=== PATIENT | female | born 1975 | race Caucasian/White ===

== ENCOUNTER 2024-08-06 08:28 | Outpatient (REF) | payer BC, SELFPAY | END 2024-08-06 08:29 | disposition home or self-care (01) | LOC: HO.SH 08:28 | PROVIDERS: Visit Provider Family Medicine | DX: Z01.118 Encounter for examination of ears and hearing with other abnormal findings (principal); H93.293 Other abnormal auditory perceptions, bilateral | CPT/HCPCS: 92557; 92567; 92700 ==

== ENCOUNTER 2025-01-02 11:25 | Outpatient (AMB) | payer BC, SELFPAY ==
--- NOTE | 2025-01-02 11:34 | MHC.OFFVIS ---
Vital Signs 01/02/25 11:35 Height 5 ft 4 in Weight 145 lb BMI 24.9 BP 92/61 Blood Pressure Location Rt brachial Position Sitting Pulse 94 Pulse Source Pulse Oximeter Pulse Oximetry (%) 97 Oxygen Delivery Method Room Air Intake Visit Reasons: Cervicalgia/shoulder pain Digital Research Analyst Required: No Allergies amoxicillin [AMOXICILLIN] Allergy (Intermediate, Unverified 01/02/25 11:35) YEAST INFECTION doxycycline [DOXYCYCLINE] Adverse Reaction (Intermediate, Unverified 01/02/25 11:35) VOMITING sulfamethoxazole [From BACTRIM] Adverse Reaction (Intermediate, Unverified 01/02/25 11:35) YEAST INFECTION trimethoprim [From BACTRIM] Adverse Reaction (Intermediate, Unverified 01/02/25 11:35) YEAST INFECTION Medication List - Last Reconciled 01/02/25 by Angie Carrero, SOLE CEMENTER bupropion HCl XL 300 mg PO QAM cetirizine (Zyrtec) 10 mg PO DAILY PRN diclofenac sodium 1% 2 grams topical QID lamotrigine ER (Lamictal XR) 300 mg PO DAILY magnesium 250 mg PO DAILY nystatin 1 appl topical DAILY trazodone 50 mg PO DAILY HPI Comments Details: Antionette is very pleasant 49 years old female who presents in my office with complains on pain in the neck with radiation into the bilateral shoulders and upper back. She reports that her pain started long time ago. Because of her pain she can not sleep normally. She can not do activities of daily living,she can take care of herself she can function normally. Weather changes in movements aggravate her pain. Heat applications topical medications and oral medications make her pain better. The pain is most severe in the morning and less severe during the daytime. Her level of pain is 5/10 today. In terms of tissue damage he describes her pain as throbbing, shooting, sharp, cramping, tugging, dull, hurting, aching, spreading, tight sensation. She tried NSAIDs for her pain with minimal results. She tried physical therapy chiropractic manipulations massage therapy and acupuncture to treat her pain. She received only temporary pain relief from some of this procedures. I stands unit and it helps her temporarily as well. She had images of her neck and her cervical spine in [facility]. Those are not available for me. Trigger point injections with [facility] which were not helpful for her pain. Her past medical history significant for headaches mental illness in form of depression and anxiety, alcohol or drug problems, history of Crohn's disease and history of arthritis past surgical history: Sinus surgery and tubal ligation, she denies smoking cigarettes denies drinking alcohol at this time drinks 2 cups of coffee a day and denies recreational drugs. Review of Systems Const All systems reviewed & are unremarkable except as noted in HPI and below ENT Reports Normal hearing present Neuro Reports Normal hearing present, Denies Abnormal speech present, Denies confusion and Denies Sensory deficit (Neuro) Psych Denies confusion Physical Exam Vital Signs: Last Vital Signs Pulse 94 01/02/25 11:35 BP 92/61 01/02/25 11:35 Pulse Ox 97 01/02/25 11:35 Oxygen Delivery Method Room Air 01/02/25 11:35 BMI result Body Mass Index 24.9 Const General: no acute distress; No confusion Orientation/consciousness: patient oriented x3 and No confusion Eyes General: appearance normal, both eyes and all related structures Pupils: Equal, round and reactive pupils present EOM: EOMs intact bilaterally Neck Other: Flexing head forward aggravates her pain minimally and flexing backwards aggravate her pain the most. Lhermitte test is negative however axial compression aggravates pain in the neck. Spurling test is negative bilaterally. There is tenderness on palpation in paraspinal spinal region cervical spine. Most severe tenderness is observed that approximately C5-C6 intervals. Valsalva maneuver does not aggravate her pain. Chest Chest palpation & inspection: normal inspection of the chest Resp Effort & Inspection: normal respiratory effort, able to speak in complete sentences, normal respiratory pattern, no audible wheezes and no cough Cardio Jugular venous distension: no JVD GI Inspection: Yes normal to inspection Neuro General: patient oriented x3, gait normal and No confusion Cranial nerves: Yes CN's II-XII intact bilaterally, Yes Equal, round and reactive pupils present, Yes Normal hearing present and Yes Ability to bilaterally elevate shoulders present Speech: No Abnormal speech present Gait exam (Neuro): Normal gait present Motor exam (neuro): 5/5 motor strength present throughout Sensory Exam: No Sensory deficit (Neuro) Extrem General: No pedal edema Psych Speech and movement: Normal speech and movement present Affect: normal affect Attitude: cooperative Thought process: Normal thought process present Thought content: Normal thought content present Insight: Good insight present (Psych) Judgement: Good judgement present (Psych) Assessment & Plan Assessment & Plan (1) Spondylosis of cervical region without myelopathy or radiculopathy: Code(s): M47.812 - Spondylosis without myelopathy or radiculopathy, cervical region Category: Medical Plan The pain of this patient is most likely secondary to cervical bilateral facet arthropathy. I offered this patient to perform bilateral diagnostic C4, C5, C6 diagnostic medial branch block. Patient agreed to go for the procedure. With good results we can try sprint PNS to help this patient's pain. Meanwhile I would like to receive the results of the MRI from [facility]. The patient will sign medical information release note and we will send it to the facility which was performing MRI for this patient. Coding Level of Care Code New Pt Level 3 (13259) Diagnoses Spondylosis of cervical region without myelopathy or radiculopathy M47.812
[2025-01-02 11:35] VITALS: BP 92/61; PULSE 94; O2SAT 97; BMI 24.9
== END 2025-01-02 11:52 | disposition home or self-care (01) ==
LOC: HO.PMC 11:26
PROVIDERS: PCP Family Medicine; Referring Provider Family Medicine; Visit Provider Anesthesiology
DX: M47.812 Spondylosis without myelopathy or radiculopathy, cervical region (principal)
CPT/HCPCS: 99203

== ENCOUNTER → 2025-01-02 11:25 | Outpatient (BNVA) | payer BC, SELFPAY | PROVIDERS: PCP Family Medicine; Referring Provider Family Medicine; Visit Provider Anesthesiology ==

== ENCOUNTER 2025-05-21 06:09 | Outpatient (REF) | payer BC, SELFPAY ==
--- NOTE | ~2025-05-21 | FL_ITS ---
EXAMINATION: FL GUIDANCE ONLY HISTORY: M47.812 - Spondylosis without myelopathy or radiculopathy, cervical region COMPARISON: None available. TECHNIQUE: Fluoroscopy time: 0.6 minutes. Cumulative Dose: 1.61 mGy. DAP: 0.0146 mGym2 Images: 10. FINDINGS: Fluoroscopic spot films of the cervical spine demonstrate needles and contrast material in the neck at multiple levels bilaterally. FL/FL guidance in treatment room IMPRESSION: Fluoroscopy during procedure. Please see procedure report for additional information. Electronically signed by: Wes Stanton MD 05/21/2025 08:17 AM EDT
--- OUTSIDE RECORDS SUMMARY | 2025-05-21 06:12 | XMS_ITS ---
Author Name [facility] Organization Unknown History of Medication Use Medication Directions Dispensed Refills Start Date End Date Stat us senna-docusate (SENNA-S) 8.6-50 MG Take 2 tablets by mouth daily. 03/29/2023 3 active escitalopram (LEXAPRO) 5 MG tablet Take 5 mg by mouth daily. 03/15/2023 active ondansetron (ZOFRAN-ODT) 4 MG disintegrating tablet Take 1 tablet (4 mg total) by mouth 3 times daily (every 8 hours) as needed for nausea or vomiting. Place tablet on tongue to dissolve. 10/04/2022 active ustekinumab (STELARA) 90 MG/ML subcutaneous injection Inject 90mg (1 syringe) subcutaneously every 8 weeks. 04/05/2022 3 active buPROPion (WELLBUTRIN SR) 150 MG 12 hr tablet Take 150 mg by mouth daily. 09/23/2021 3 active lamoTRIgine (LaMICtal) 200 MG tablet Take 1 tablet (200 mg total) by mouth daily. 08/29/2021 active Cetirizine HCl (ZyrTEC) 10 MG Cap 1 tablet as needed active Allergies Allergen Reaction Severity Comment Documented Date Source Statu s SULFAMETHOXAZOLE- TRIMETHOPRIM GI INTOLERANCE/NA USEA/VOMITING C/o yeast 08/19/2017 [facility] active AMOXICILLIN OTHER (SEE COMMENTS) Yeast infection and rash,C/o yeast [facility] DOXYCYCLINE GI INTOLERANCE/NA USEA/VOMITING [facility] Problems Problem Status Onset Date Problem Type Date of Resoluti on Source Crohn's disease of large intestine without complication active 2021-10-02 [facility] Chronic idiopathic constipation active 2023-03-29 [facility] Immunizations Vaccine Date Source Lot Number Status Covid-19 MRNA Vaccine - Pfiz er 12+ (Purple Cap) 12/12/2020 [facility] [id number] completed Covid-19 MRNA Vaccine - Pfiz er 12+ (Purple Cap) 11/21/2020 [facility] [id number] completed Encounters Encounter Type Encounter Reason Primary Diagnosis Location Date Ambulatory Chronic idiopath ic constipation [facility] 03/29/2023 Ambulatory Crohn's disease of large intestine without complications [facility] 09/22/2022 Ambulatory Crohn's disease of large intestine without complications [facility] 04/01/2022 Ambulatory Crohn's disease of large intestine without complications [facility] 10/02/2021 Care Team Organization Name Specialty Phone Email Start Date End [facility]2022 [facility] 04/01/2022 [facility] 10/02/2021 03/23/20 [facility] 10/02/2021
--- OUTSIDE RECORDS SUMMARY | 2025-05-21 06:12 | XMS_ITS | Clinical Summary ---
Author Organization [facility] Address [address] [address] Phone Care Team Providers Care Motor Assembler Name Role Phone Samreen Vasquez MD Primary Care Provider Allergies Active Allergy Reactions Criticality Noted Date Comments Amoxicillin 08/19/2017 C/o yeast Sulfamethoxazole-Trimethopr im 08/19/2017 C/o yeast Doxycycline Calcium Nausea and/or Vomiting 04/2017 Haloperidol Anxiety Low 05/23/2023 Medications Lactobacillus acidophilus (PROBIOTIC) 10 billion cell Cap Act kalli ascorbic acid, vitamin C, (VITAMIN C) 1000 MG tablet Take 1,000 mg by mouth daily. Active cetirizine (ZYRTEC) 10 mg Cap Take 10 mg by mouth daily. Active lamoTRIgine (LAMICTAL) 200 MG tablet Take 200 mg by mouth daily. 1 1/2 daily Active traZODone (DESYREL) 50 MG tablet Take 25 mg by mouth nightly at bedtime. Active TURMERIC ORAL Take 500 mg by mouth daily. Active buPROPion (WELLBUTRIN XL) 300 MG ER 24 hr tablet Take 300 mg by mouth daily. Active cholecalciferol, vitamin D3, (VITAMIN D3 ORAL) Take 400 Units by mouth daily. Active ustekinumab (STELARA) 90 mg/mL Syrg subcutaneous injection syringe Inject 90 mg under the skin once every 8 weeks. Active escitalopram oxalate (LEXAPRO) 5 MG tablet Take 5 mg by mouth daily. 3 Active vitamin B complex (B COMPLEX 1 ORAL) Active cyclobenzaprine (FLEXERIL) 10 MG tabletIndications :Trapezius muscle spasm Take 1 tablet (10 mg total) by mouth 3 (three) times a day as needed. 90 tablet 5 4 Active meloxicam (MOBIC) 15 MG tablet Take 1 tablet (15 mg total) by mouth daily as needed for pain (specific location in comments). 30 tablet 5 4 Active Active Problems Problem Noted Date Diagnosed Date Psoriatic arthritis 07/01/2023 Assessment & Plan (12/26/2023 5:05 PM EDT): Psoriatic arthritis very stable with no skin disease, swollen joints and minimal stiffness. She is doing well on Stelara which is also controlling her Crohn's colitis. I reviewed recent labs done in May. Assessment & Plan (07/01/2023 9:28 AM EDT): Psoriatic arthritis well-controlled on Stelara every 8 weeks, prescribed by gastroenterology. It is also controlling the Crohn's colitis. No need for labs today. Primary osteoarthritis involving multiple joints 07/01/2023 Assessment & Plan (12/26/2023 5:05 PM EDT): This in multiple joints fairly stable on Tylenol 650 mg as needed. Assessment & Plan (07/01/2023 9:29 AM EDT): Degenerative osteoarthritis in multiple areas with an increase in stiffness but no swelling. Gave her an intramuscular injection of triamcinolone 60 mg to relieve the stiffness. Trapezius muscle spasm 07/01/2023 Assessment & Plan (12/26/2023 5:05 PM EDT): Spasm secondary to osteoarthritis of the cervical spine. She uses cyclobenzaprine rarely as needed. Assessment & Plan (07/01/2023 9:30 AM EDT): Chronic spasm of the trapezius secondary to degenerative arthritis in the cervical spine. Continue with cyclobenzaprine as needed. Perianal dermatitis 10/05/2017 Overview (10/05/2017): Due to diarrhea Assessment & Plan (10/05/2017 3:49 PM EST): Will apply nystatin BID as a barrier and to treat cutaneous yeast. Will follow up with GI for diarrhea. Autoimmune disease 08/19/2017 Lichen sclerosus 08/19/2017 Assessment & Plan (10/05/2017 3:49 PM EST): Cut back to three times per week fluocinonide. Reviewed area of application not to include mucosal surfaces. Will apply coconut oil there and use prn soaks. Assessment & Plan (08/19/2017 5:48 PM EST): Reviewed findings with patient. I reviewed the importance of regular maintenance topical steroid use to prevent symptoms, further scarring, and squamous cell cancer of the vulva. I also explained the importance of regular follow up to ensure she has no evidence of precancerous or cancerous changes and that she is not having side effects from her medication. I reviewed areas of application and amount of medication to use. Continue clobetasol once weekly. Myofascial pain 08/19/2017 Assessment & Plan (08/19/2017 5:49 PM EST): Trigger point injection as noted above. Can return prn. 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 Atrophy of vulva 08/19/2017 Resolved Problems Problem Noted Date Diagnosed Date Resolved Date Allergic contact mucositis 09/23/2017 0 10/05/2017 Assessment & Plan (09/23/2017 10:41 PM EST): I reviewed with Antionette that I suspect her pain is related to mucositis of the introitus. I explained this could be an allergic response to clobetasol which she admitted she has recently been applying to this area. I recommended she switch steroid and apply to the area. She will also use lidocaine and soaks for comfort. I explained the only way to know for sure what this represents is to perform a biopsy. She was not open to this due to her pain. She will call if sx not improving or if they are worsening. Family History Medical History Relation Comments Bladder Cancer Father Hyperlipidemia Father CV disease Maternal Grandfather Heart attack Maternal Grandfather Stroke Maternal Grandmother Breast cancer Mother Diabetes mellitus Mother Relation Status Comments Father Alive Maternal Grandfather Maternal Grandmother Mother Social History Tobacco Use Types Packs/Day Years Used Date Smoking Tobacco: Former Cigarettes Q uit: 2004 Smokeless Tobacco: Never Tobacco Cessation:Counseling Given: Not Answered Alcohol Use Standard Drinks/Week Comments No 0 (1 standard drink = 0.6 oz pur e alcohol) Hx of Alcholism Education Answer Date Recorded Are you interested in more education? Not on zulema e 01/07/2023 Are you concerned about learning? Not on file 01/07/2023 No 01/07/2023 No 01/07/2023 Digital Access Answer Date Recorded No 02/04/2023 No 02/04/2023 Reliable internet access at home? Not on file 02/04/2023 Device with a working camera? Not on file Comments No Sex and Gender Information Value Date Recorded Sex Assigned at Female 10/09/2017 1:36 PM EST Legal Sex Female 9:26 PM EDT Gender Identity Female 10/09/2017 1:36 PM EST Sexual Orientation Choose not to disclose 2022 8:09 PM EDT Occupation Industry Job Start Date Job End Date Teacher Not on file Not on file Not on file Last Filed Vital Signs Vital Sign Reading Time Taken Comments Blood Pressure 118/60 11/21/2023 4:04 PM EDT Pulse 82 11/21/2023 4:04 PM EDT Temperature - - Respiratory Rate - - Oxygen Saturation 97% 11/21/2023 4:04 PM EDT Inhaled Oxygen Concentration - - Weight 67.1 kg (148 lb) 11/21/2023 4:04 PM EDT Height 162.6 cm (5' 4 ) 11/21/2023 4:04 PM EDT Body Mass Index 25.4 11/21/2023 4:04 PM EDT Plan of Treatment Health Maintenance Due Date Last Done Comments LIPID PANEL 1977 DEPRESSION SCREENING 1989 SMOKING Hx and SMOKELESS TOBACCO SCREENING 1990 HEPATITIS C SCREENING 1995 HIV ONE-TIME SCREENING (18-65 YEARS) 1995 PAP SMEAR 1998 MAMMOGRAM 2017 COLOGUARD 2022 COLONOSCOPY 2022 COLORECTAL CANCER SCREENING 2022 FIT TEST 2022 FOBT 2022 SIGMOIDOSCOPY 2022 VIRTUAL COLONOSCOPY 2022 Adult Td,Tdap Booster 06/11/2024 06/11/2014, 004 INFLUENZA VACCINE (#1) 2025 , 06/11/2022, 06/30/2021, Additional history exists COVID-19 VACCINE ( season) 2025 09/08/2023, 06/11/2022, 05/23/2021, Additional history exists SCREENING FOR DIABETES 09/17/2027 09/17/2024 HEPATITIS A VACCINES Aged Out 10/09/2021, 02/28/20 21 No longer eligible based on patient's age to complete this topic HIB VACCINES Aged Out No longer eligi ble based on patient's age to complete this topic MENINGOCOCCAL VACCINES (ACWY) Aged Out No longer eligible based on patient's age to complete this topic MENINGOCOCCAL VACCINES (B) Aged Out N o longer eligible based on patient's age to complete this topic PNEUMOCOCCAL VACCINES (0-49 years) Aged Out No longer eligible based on patient's age to complete this topic Medical Devices Not on file Insurance [facility] James SANDOVAL [place] [facility] James SANDOVAL [place] [facility] James SANDOVAL [place] [facility] James SANDOVAL [place] [facility] James SANDOVAL [place] [facility] [employer] [place] Care Teams Motor Assembler Relationship Specialty Start Date End Date Samreen Vasquez MD [address] [place] [id number] [email or web address] PCP - General Family Medicine 05/23/23 Additional Source Comments The information contained in this document represents components of the legal health record. It is not the complete legal health record.[facility]
--- OUTSIDE RECORDS SUMMARY | 2025-05-21 06:13 | XMS_ITS | Clinical Summary ---
Author Organization [facility] [address] [place] [address] [place] [phone] Phone Care Team Providers Care Gun Numberer Name Role Phone Samreen Vasquez MD Primary Care Provider [phone] Allergies Active Allergy Reactions Criticality Noted Date Comments Doxycycline Nausea And Vomiting,Other 8 Sulfamethoxazole-Trimethopri m Other 01/22/2025 Medications lamoTRIgine (LaMICtal) 200 mg tablet Take 1 tablet (200 mg total) by mouth 2 (two) times a day. 300mg Active buPROPion XL (WELLBUTRIN XL) 300 mg 24 hr tablet Take 1 tablet (300 mg total) by mouth 1 (one) time each day in the morning. 12/02/2024 Active escitalopram (LEXAPRO) 5 mg tablet Take 1 tablet (5 mg total) by mouth 1 (one) time each day. Active cetirizine (ZyrTEC) 10 mg tablet Take 1 tablet (10 mg total) by mouth. 11/17/2018 Active ustekinumab (Stelara) 130 mg/26 mL solution Infuse 78 mL (390 mg total) into a venous catheter. 03/13/2021 Active traZODone (DESYREL) 50 mg tablet TAKE 1-2 TABLETS BY MOUTH EVERY DAY AT BEDTIME NEEDED FOR INSOMNIA 11/28/2024 Active ASCORBIC ACID, VITAMIN C, ORAL Take by mouth. Active CALCIUM CARBONATE ORAL Take by mouth. Active clobetasoL (TEMOVATE) 0.05 % ointment apply to affected area twice a day as needed Active ustekinumab (Stelara) 90 mg/mL syringe Inject 1 mL (90 mg total) under the skin 12/11/2021 Active nystatin-triamc inolone (MYCOLOG II) ointment Apply a thin layer to affected area on the vulva MWF 30 g 1 01/22/2025 Active Active Problems Problem Noted Date Diagnosed Date Pelvic floor dysfunction 01/22/2025 Lichen planus 01/22/2025 Overview (01/22/2025): Diagnosed visually as LP in 2014, had biopsy whcih was non-specific with Derm and then clinically seemed more like LS, but not clear. Irritation with lidocaine and clobetasol in the past. Clinical picture now most c/w LP. Assessment & Plan (01/22/2025 3:16 PM EDT): Well controlled. Continue MWF Mycolog. 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 Perianal dermatitis 10/08/2021 Overview (01/22/2025): Last Assessment & Plan: Currently controlled. Continue prn clobetasol and nystatin. 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 Resolved Problems Problem Noted Date Diagnosed Date Resolved Date Lichen sclerosus et atrophicus 01/22/2025 01/22/2025 Surgical History Surgery Date Site/Laterality Comments OTHER SURGICAL HISTORY 04/30/2013 PROCEDURE: VT LIG/TRNSXJ FLP TUBE ABDL/VAG APPR UNI/BI SINUS SURGERY 11/14/2014 PROCEDURE: VT UNLISTED PROCEDURE ACCESSORY SINUSES OTHER SURGICAL HISTORY PROCEDURE: BREAST TISSUE EXCISIONAL PATHOLOGY EXAM; COMMENT: skin lesion Medical History Medical History Date Comments Dyspareunia in female DX:Dyspare unia in female; COMMENT: Saw sex therapy for - 8 years in [place] in past Psoriasis DX:Psoriasis; CO MMENT: On Cosentyx Psoriatic arthritis ([facility] V24, [facility] V28) DX:Psoriatic arthritis ([facility]) Allergic rhinitis 03/13/2019 DX:Allergic rh initis Family history of breast cancer 12/27/2017 DX:Family history of breast cancer Oral lesion 10/10/2018 DX:Oral lesion Vulvar ulceration 10/10/2018 DX:Vulvar ulce ration Anxiety and depression 03/13/2019 DX:Anxiet y and depression Chronic constipation 03/13/2019 DX:Chronic constipation Chronic tension headaches 03/13/2019 DX:Chr onic tension headaches 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 DX:Chronic anal fissure Anal ulceration 03/13/2019 DX:Anal ulcerati on History of substance abuse ( [facility] V24, [facility] V28) 03/13/2019 DX:History of substance abus e ([facility]); COMMENT: alcohol Vulvar ulcer 10/10/2018 DX:Vulvar ulcer Family History Medical History Relation Name Comments Depression Brother Bladder Cancer Father Hyperlipidemi a Coronary artery disease Maternal Grandfather Stroke Maternal Grandmother Breast cancer Mother 40 no genetic testing Bipol ar, Diabetes Bipolar disorder Sister Colon cancer Neg Hx Ovarian cancer Neg Hx Pancreatic cancer Neg Hx Prostate cancer Neg Hx Uterine cancer Neg Hx Relation Name Status Comments Brother Father Maternal Grandfather Maternal Grandmother Mother 40 no genetic testing Alive Sister Social History Tobacco Use Types Packs/Day Years Used Date Smoking Tobacco: Former Cigarettes 0.8 12 0 09/12/1994 - 09/12/2006 Smokeless Tobacco: Never Alcohol Use Standard Drinks/Week Comments No 0 (1 standard drink = 0.6 oz pur e alcohol) Housing Instability Answer Date Recorde d Are you worried that in the next 2 months you may not have stable housing? No 01/21/2025 Food Access & Nutrition Answer Date Rec orded Do you have access to a vari ety of food including fruits and vegetables? Yes 01/21/2025 Access to Healthcare Answer Date Record ed Within the last 3 months, ho w many times did you visit the emergency department for your medical care? 0 01/21/2025 Health Literacy Answer Date Recorded How often do you need to hav e someone help you when you read instructions, pamphlets, or other written material from your doctor or pharmacy? Never 01/21/2025 Caregiver: How often do you need to have someone help you when you read instructions, pamphlets, or other written material from your doctor or pharmacy? Not on file 01/21/2025 Financial Risk Answer Date Recorded How hard is it for you to pa y for the very basics like food, housing, medical care, and air conditioning / heating? Not very hard 01/21/2025 Transportation Answer Date Recorded Has the lack of transportati on kept you from meetings, work, or from getting things needed for daily living? No Has the lack of transportati on kept you from medical appointments or from getting medications? No 01/21/2025 Social Isolation Answer Date Recorded How often do you feel lonely or isolated from th ose around you? Rarely 01/21/2025 Food Risk Answer Date Recorded Within the past 12 months we worried whether our food would run out before we got money to buy more. Never true 01/21/2025 Within the past 12 months th e food we bought just didn't last and we didn't have money to get more. Never true 01/21/2025 Dependent Care Answer Date Recorded Do you need help finding or paying for care for your loved ones. For example, child day care teacher or elderly care for an older adult? No 01/21/2025 Education Answer Date Recorded Do you think completing more education or training, like finishing a GED, going to college, or learning a trade, would be helpful for you? N/A 01/21/2025 Employment and Income Answer Date Recor ded During the last four weeks, have you been actively looking for work? No 01/21/2025 Living Situation Answer Date Recorded What is your living situation? 0 01/21/2025 Comments No Sex and Gender Information Value Date Recorded Sex Assigned at Not on file Legal Sex Female 10:40 PM EST Gender Identity Not on file Sexual Orientation Not on file Obstetrics History Para Term AB IAB SAB Ectopic Multiple Livin g Live Births 1 1 1 1 1 Date Outcome GA Total Labor Labor/2nd/3rd Weight Sex Type Anes PTL Nicky A1 A5 Name Clin 007 Term M Vag-S pont Livin g Gorge Delivery Location:[facility] Last Filed Vital Signs Vital Sign Reading Time Taken Comments Blood Pressure 103/57 01/22/2025 2:54 PM EDT Pulse 73 01/22/2025 2:54 PM EDT Temperature - - Respiratory Rate 14 01/22/2025 2:54 PM EDT Oxygen Saturation - - Inhaled Oxygen Concentration - - Weight 67 kg (147 lb 9.6 oz) 01/22/2025 2:54 PM EDT Height 162.6 cm (5' 4 ) 01/26/2024 3:40 PM EDT Body Mass Index 25.34 01/26/2024 3:40 PM EDT Plan of Treatment Health Maintenance Due Date Last Done Comments Breast Cancer Screening 1977 Hepatitis B Vaccines (1 of 3 - 19+ 3-dose series) 1996 Cervical Cancer Screening: HPV 1998 Colorectal Cancer Screening: Colonoscopy 08/15/2022 Influenza Vaccine (#1) 2025 , 06/29/2023, 06/11/2022, Additional history exists Social Influencers of Health Screening 01/21/2026 01/21/2025 DTaP,Tdap,and Td Vaccines (4 - Td or Tdap) 07/16/2034 07/16/2024, 06/11/2014, 04/21/2004 Hepatitis A Vaccines Aged Out 10/09/2021, 02/28/20 21 No longer eligible based on patient's age to complete this topic COVID-19 Vaccine Completed 06/23/2024, , 06/11/2022, Additional history exists Depression Screening Completed 01/21/2025 HIV Screening Completed 01/22/2025 Hepatitis C Screening Completed 01/22/2025 HIB Vaccines Aged Out No longer eligi ble based on patient's age to complete this topic HPV Vaccines Aged Out No longer eligi ble based on patient's age to complete this topic IPV Vaccines Aged Out No longer eligi ble based on patient's age to complete this topic MMR Vaccines Aged Out No longer eligi ble based on patient's age to complete this topic Meningococcal ACWY Vaccine Aged Out N o longer eligible based on patient's age to complete this topic Meningococcal B Vaccine Aged Out No l onger eligible based on patient's age to complete this topic Pneumococcal Vaccine: Pediatrics (0 to 5 Years) and At-Risk Patients (6 to 49 Years) Aged Out No longer eligible based on patient's age to complete this topic RSV Immunization Patients Under 20 months Aged Out No longer eligible based on patient's age to complete this topic Varicella Vaccines Aged Out No longer eligible based on patient's age to complete this topic Procedures Procedure Name Priority Date/Time Associated Diagnosis Comments HEPATITIS C ANTIBODY Routine 01/22/2025 3:29 PM EDT Screen for STD (sexually transmitted disease) HIV 1 MOLECULAR STUDY QUANTITATIVE Routine 01/22/2025 3:29 PM EDT Screen for STD (sexually transmitted disease) from Last 3 Months or Most Recently Relevant to Health Maintenance Results * Hepatitis C antibody (01/22/2025 3:29 PM EDT) [facility] Hepatitis C Antibody Negative Negative LAB CHEMISTRY METHOD 01/22/2025 7:42 PM EDT [facility] Blood Venous blood specimen / Unknown Venipuncture / Unknown 01/22/2025 3:29 PM EDT 01/22/2025 3:29 PM EDT Simi Pérez MD LAB BLOOD ORDERABLES Final Result [facility]) [facility] [address] [place] [address], [place] [phone] * HIV 1 molecular study quantitative (01/22/2025 3:29 PM EDT) [facility] HIV-1 RNA Interpretation Not Detected Not Detected LAB MOLECULAR DIAGNOSTICS METHOD 01/23/2025 8:29 AM EDT [facility] Comment:HIV RNA not detected , unable to report quantitative results. Blood Venous blood specimen / Unknown Venipuncture / Unknown 01/22/2025 3:29 PM EDT 01/22/2025 3:29 PM EDT us Simi Pérez MD LAB BLOOD ORDERABLES Final Result [facility] [address] [place] [address], [place] [phone] from Last 3 Months or Most Recently Relevant to Health Maintenance Insurance [facility] Care Teams Gun Numberer Relationship Specialty Start Date End Date Samreen Vasquez MD [address] [place] [phone] PCP - General 01/24/24
--- OUTSIDE RECORDS SUMMARY | 2025-05-21 06:13 | XMS_ITS | Encounter Summary ---
Author Organization [facility] Address [address] [facility] [address] [place] [address] Phone Care Team Providers Care Marine Steam Fitter Name Role Phone Samreen Vasquez MD Primary Care Provider [phone] Encounter Details Date Type Department Care Team (Latest Contact Info) Description 09/17/2024 Transcribe Orders [facility] [address] [place] [id number] Fariba Vo NP [address] [place] [address] [email or web address] (Primary Dx) Social History Tobacco Use Types Packs/Day Years Used Date Smoking Tobacco: Former Cigarettes Q uit: 2005 Smokeless Tobacco: Never Alcohol Use Standard Drinks/Week [...] file Not on file Not on file documented as of this encounter Plan of Treatment Not on file documented as of this encounter Results * C-Reactive Protein (09/17/2024 3:07 PM EST) C REACTIVE PROTEIN <3.0 0.0 - 4.0 mg/L [facility] Blood 09/17/2024 3:07 PM EST 09/17/2024 3:11 PM EST us Fariba Vo NP LAB BLOOD ORDERABLES Final Result Performing Organization Address City/State/[facility] Co de Phone Number [facility] [address] [place] [address] * (ABNORMAL) Comprehensive metabolic panel (09/17/2024 3:07 PM EST) Pathologist [facility] SODIUM 136 133 - 146 mmol/L [facility] POTASSIUM 4.2 3.3 - 5.1 mmol/L [facility] CHLORIDE 97 96 - 108 mmol/L [facility] CO2 29 21 - 35 mmol/L [facility] BUN 19 6 - 19 mg/dL [facility] CREATININE 1.20 0.5 - 1.5 mg/dL [facility] GLUCOSE 86 70 - 99 mg/dL [facility] ALBUMIN 4.5 3.9 - 4.8 g/dL [facility] TOTAL PROTEIN 7.0 6.5 - 8.0 g/dL [facility] CALCIUM 9.1 8.4 - 10.3 mg/dL [facility] ALKALINE PHOSPHATASE 76 39 - 117 U/L [facility] TOTAL BILIRUBIN 0.3 0.0 - 1.2 mg/dL [facility] AST 22 0 - 37 U/L [facility] ALT 18 0 - 40 U/L [facility] GLOBULIN 2.5 1 - 4.8 g/dL [facility] EGFR 56(L) >59 mL/min/1.7 3m2 [facility] Comment:Estimated glomerular filtration rate calculated using the CKD-EPI refit equation. ANION GAP 14 10 - 20 mmol/L [facility] Blood 09/17/2024 3:07 PM EST 09/17/2024 3:11 PM EST us Fariba Fenton [employer]LE[employer] NETWORK MANAGER LAB BLOOD ORDERABLES Final Result [facility] [address] [place] [address] * (ABNORMAL) CBC and differential (09/17/2024 3:07 PM EST) WBC 6.45 4.00 - 11.00 K/uL [facility] RBC 4.43 4.00 - 5.20 M/uL [facility] HGB 14.0 12.0 - 16.0 g/dL [facility] HCT 42.7 36.0 - 46.0 % [facility] PLT 213 150 - 450 K/uL [facility] MCV 96.4 80.0 - 100.0 fL [facility] MCH 31.6(H) 27.0 - 31.0 pg [facility] MCHC 32.8 32.0 - 36.0 g/dL [facility] RDW 12.8 11.5 - 14.5 % [facility] MPV 9.4 8.4 - 12.0 fL [facility] NRBC 0.00 0.00 /100 WBCs [facility] ABSOLUTE NRBC 0.00 0.00 K/uL [facility] DIFF METHOD Auto [facility] NEUTS 64.3 48.0 - 76.0 % [facility] LYMPHS 24.0 18.0 - 41.0 % [facility] MONOS 9.3 4.0 - 11.0 % [facility] EOS 1.6 0.0 - 5.0 % [facility] BASOS 0.6 0.0 - 1.5 % [facility] Granulocytes, immature (%) 0.2 0.0 - 0.9 % [facility] ABSOLUTE NEUTS 4.15 1.92 - 7.60 K/uL [facility] ABSOLUTE LYMPHS 1.55 0.72 - 4.10 K/uL [facility] ABSOLUTE MONOS 0.60 0.16 - 1.10 K/uL [facility] ABSOLUTE EOS 0.10 0.00 - 0.50 K/uL [facility] ABSOLUTE BASOS 0.04 0.00 - 0.15 K/uL [facility] Granulocytes, immature 0.01 0.00 - 0.09 K/uL [facility] Blood 09/17/2024 3:07 PM EST 09/17/2024 3:11 PM EST us Fariba Vo TELECOM NETWORK MANAGER LAB BLOOD ORDERABLES Final Result [facility] [address] [place] [address] documented in this encounter Visit Diagnoses Diagnosis Bloating- Primary Flatulence, eructation, and gas pain documented in this encounter Care Teams Marine Steam Fitter Relationship Specialty Start Date End Date Samreen Vasquez MD [address] [place] [address] [email or web address] PCP - General Family Medicine 05/23/23 documented as of this encounter Additional Source Comments The information contained in this document represents components of the legal health record. It is not the complete legal health record.[facility]
--- OUTSIDE RECORDS SUMMARY | 2025-05-21 06:13 | XMS_ITS | Encounter Summary ---
Author Organization [facility] Address [address] [place] [address] Care Team Providers Care Unit Supervisor Name Role Phone Aletha Roberts MD Primary Care Provider [phone] Justin Anderson MD Unavailable [phone] Samreen Vasquez MD Primary Care Provider + Encounter Details Date Type Department Care Team (Late st Contact Info) Description 11/06/2021 Scanned Document [facility] [address] [place] [phone] Justin Anderson MD [address] [place] [address] Social History Tobacco Use Types Packs/Day Years Used Date Smoking Tobacco: Former Smokeless Tobacco: Never Alcohol Use Standard Drinks/Week Comments Not Currently 0 (1 standard drink = 0.6 oz pur e alcohol) Comments Unknown Sex and Gender Information Value Date Recorded Sex Assigned at Female 05/28/2023 8:45 PM EDT Legal Sex Female 9:40 AM EST Gender Identity Female 05/28/2023 8:45 PM EDT Sexual Orientation Not on file documented as of this encounter Plan of Treatment Not on file documented as of this encounter Procedures Procedure Name Priority Date/Time Associated Diagnosis Comments PATHOLOGY REPORT 11/06/2021 4:28 PM EST documented in this encounter Results * PATHOLOGY REPORT (11/06/2021 4:28 PM EST) Justin Anderson MD PATHOLOGY/CYTOLOGY ORDERABLES Final Result documented in this encounter Visit Diagnoses Not on filedocumented in this encounter Care Teams Unit Supervisor Relationship Specialty Start Date End Date Aletha Roberts MD [address] [place] [address] PCP - General General Medicine 08/03/21 04/04/22 Samreen Vasquez MD [place] [id number] [address] PCP - General Family Medicine 04/05/22 Justin Anderson MD [address] [place] [address] Gastroenterology 08/03/21 documented as of this encounter
--- OUTSIDE RECORDS SUMMARY | 2025-05-21 06:13 | XMS_ITS | Encounter Summary ---
Author Organization [facility] Address [address] [facility] [address] [place] [address] Phone Care Team Providers Care Assistant Store Manager Name Role Phone Yen Barber NP Unavailable [phone] Simi Pérez MD Unavailable [phone] Kathy Castle MD Unavailable Kathy Castle MD Primary Care Provider [phone] Samreen Vasquez MD Primary Care Provider [phone] Reason for Referral * Physical Therapy (Routine) - Closed Specialty Diagnoses / Procedures Referred By Vikas larose Referred To Contact Physical Therapy Diagnoses dyssneria System, Provider Not In, [facility] [address] [address] Phone: tel: Referral ID Status Reason Start Date Expiration Date Visits Re quested Visits Authorized [id number] Closed 10/16/2018 10/16/2019 16 16 Encounter Details Date Type Department Care Team (Latest Contact Info) Description 08/28/2018 Transcribe Orders [facility] [address] [place] [address] Joe Mays MD [address] [place] [address] [place] [id number] Encounter for rehabilitation (Primary Dx) Social History Tobacco Use Types Packs/Day Years Used Date Smoking Tobacco: Former Cigarettes Q uit: 2005 Smokeless Tobacco: Never Alcohol Use Standard Drinks/Week Comments No 0 (1 standard drink = 0.6 oz pur e alcohol) Hx of Alcholism Comments No Sex and Gender Information Value [...] as of this encounter Plan of Treatment Scheduled Referrals Name Type Priority Associated Diagnoses Orde r Schedule Ambulatory referral to [facility] Physical Therapy Outpatient Referral Routine Encounter for rehabilitation Ordered: 08/28/2018 documented as of this encounter Visit Diagnoses Diagnosis Encounter for rehabilitation- Primary documented in this encounter Care Teams Assistant Store Manager Relationship Specialty Start Date End Date Kathy Castle MD [address] [place] [address] [address] [email or web address] PCP - General Family Medicine 08/19/17 05/22/23 Samreen Vasquez MD [address] [place] [address] [email or web address] PCP - General Family Medicine 05/23/23 Yen Barber NP [address] [place] [address] Historical LMR Provider 06/30/17 2 Simi Pérez MD [address] [place] [address] Historical LMR Provider 06/30/17 2 Kathy Castle MD [address] [facility], [address] [place] [address] [email or web address] Historical LMR Provider 06/30/17 2 documented as of this encounter Additional Source Comments The information contained in this document represents components of the legal health record. It is not the complete legal health record.[facility]
--- OUTSIDE RECORDS SUMMARY | 2025-05-21 06:13 | XMS_ITS | Clinical Summary ---
Author Organization [facility] Address [address] [place] [address] Care Team Providers Care Media Analyst Name Role Phone Justin Anderson MD Unavailable [phone] Samreen Vasquez MD Primary Care Provider + Allergies Active Allergy Reactions Criticality Noted Date Comments Amoxicillin Other (See Comments) 08/19/2017 C/o yeast Yeast infection and rash Doxycycline Nausea And Vomiting,GI Intolerance/Nausea/V omiting Low 08/19/2017 Sulfamethoxazole-Trime thoprim Other (See Comments),GI Intolerance/Nausea/V omiting Low 08/19/2017 C/o yeast Medications lamoTRIgine (LaMICtal) 200 MG tablet Take 1 tablet (200 mg total) by mouth daily. 08/29/20 21 Active traZODone (DESYREL) 50 MG tablet Take 50 mg by mouth nightly. 09/12/19 22 Active Cetirizine HCl (ZyrTEC) 10 MG Cap Take 10 mg by mouth daily. Active ondansetron (ZOFRAN-ODT) 4 MG disintegrating tabletIndications: Nausea Take 1 tablet (4 mg total) by mouth 3 times daily (every 8 hours) as needed for nausea or vomiting. Place tablet on tongue to dissolve. 20 tablet 3 10/04/19 23 Active ustekinumab (STELARA) 90 MG/ML subcutaneous injectionIndicatio ns:Crohn's disease of large intestine without complication (HCC) Inject 90mg (1 syringe) subcutaneously every 8 weeks. 1 each 5 02/24/20 23 Active escitalopram (LEXAPRO) 5 MG tablet Take 5 mg by mouth daily. 03/15/20 23 Active senna-docusate (SENNA-S) 8.6-50 MGIndications:Cycle Analyst gibson idiopathic constipation Take 2 tablets by mouth daily. 28 tablet 3 03/29/20 23 Active buPROPion (WELLBUTRIN SR) 200 MG 12 hr tablet Take 1 tablet (200 mg total) by mouth every morning. 04/11/20 23 Active Active Problems Problem Noted Date Diagnosed Date Chronic idiopathic constipation 03/29/2023 Crohn's disease of large intestine without compl ication 10/02/2021 Immunizations Immunization Administration Dates Next Due Covid-19 MRNA Vaccine - Pfizer 12+ (Purple Cap) 12/12/2020,11/21/2020 Social History Tobacco Use Types Packs/Day Years Used Date Smoking Tobacco: Former Smokeless Tobacco: Never Tobacco Cessation:Counseling Given: Not Answered Comments:Quit over 18 years ago Alcohol Use Standard Drinks/Week Comments Not Currently 0 (1 standard drink = 0.6 oz pur e alcohol) Comments Unknown Sex and Gender Information Value Date Recorded Sex Assigned at Female 05/28/2023 8:45 PM EDT Legal Sex Female 9:40 AM EST Gender Identity Female 05/28/2023 8:45 PM EDT Sexual Orientation Not on file Last Filed Vital Signs Vital Sign Reading Time Taken Comments Blood Pressure 110/68 09/22/2022 3:12 PM EST Pulse 78 09/22/2022 3:12 PM EST Temperature 36.3 C (97.3 F) 09/22/2022 3:12 PM EST Respiratory Rate - - Oxygen Saturation - - Inhaled Oxygen Concentration - - Weight 63.5 kg (140 lb) 03/29/2023 3:46 PM EDT Height 162.6 cm (5' 4 ) 03/29/2023 3:46 PM EDT Body Mass Index 24.03 03/29/2023 3:46 PM EDT Plan of Treatment Health Maintenance Due Date Last Done Comments Hepatitis C Virus Screening 1977 Quantiferon Gold TB 1987 HIV Screening 1990 DTaP/Tdap/Td Vaccines (1 - Tdap) 1996 Hepatitis B Vaccines (1 of 3 - 19+ 3-dose series) 1996 Pneumococcal Vaccine: Pediat javier (0-5 Years) and At-Risk Patients (6 to 49 Years) (1 of 2 - PCV) 1996 Pap Smear (Ages 21-65) 1998 Mammogram 2017 COVID-19 Vaccine (5 - 2024-2 5 season) 2024 06/11/2022, 05/23/2021, 12/12/2020, Additional history exists Influenza Vaccine 04/12/2025 06/11/2022, , 07/08/2020, Additional history exists Colonoscopy 11/05/2031 11/05/2021 Insurance BLUE CROSS OUT OF STATE - HMO Care Teams Media Analyst Relationship Specialty Start Date End Date Samreen Vasquez MD [place] [id number] [address] PCP - General Family Medicine 04/05/22 Justin Anderson MD [address] [place] [id number] Gastroenterology 08/03/21
--- OUTSIDE RECORDS SUMMARY | 2025-05-21 06:13 | XMS_ITS | Encounter Summary ---
Author Organization [facility] Address [address] [facility] [place] [place] [address] [place] [phone] Phone Care Team Providers Care Channel Rebuilder Name Role Phone Samreen Vasquez MD Primary Care Provider [phone] Encounter Details Date Type Department Care Team (Latest Contact Info) Description 03/13/2024 Transcribe Orders [facility] Laboratory [address] [facility] [address] [place] [address] Fatoumata Trniidad MD [address] [place] [address] [place] [phone] [email or web address] Crohn's disease of large intestine with complication (Primary Dx); Constipation, unspecified constipation type Social History Tobacco Use Types Packs/Day Years [...] documented as of this encounter Results * 25-OH vitamin D (03/13/2024 10:51 AM EDT) 25 OH VIT D (TOTAL) 57 30 - 60 ng/mL [facility] Blood 03/13/2024 10:5 1 AM EDT 03/13/2024 10:55 AM EDT us Fatoumata Trinidad MD LAB BLOOD ORDERABLES Final Result Performing Organization Address [facility]/ZIP Co de Phone Number [address] [address] * Ferritin (03/13/2024 10:51 AM EDT) FERRITIN 90 13 - 150 ug/L [facility] Blood 03/13/2024 10:5 1 AM EDT 03/13/2024 10:55 AM EDT us Fatoumata Trinidad MD LAB BLOOD ORDERABLES Final Result Performing Organization Address [facility]/ZIP Co de Phone Number [address] [address] * Folate (03/13/2024 10:51 AM EDT) FOLIC ACID 12.9 4.2 - 19.9 ng/mL [facility] Blood 03/13/2024 10:5 1 AM EDT 03/13/2024 10:55 AM EDT us Fatoumata Trinidad MD LAB BLOOD ORDERABLES Final Result Performing Organization Address [facility]/ZIP Co de Phone Number [address] [address] * Iron and iron binding capacity (03/13/2024 10:51 AM EDT) Pathologist [facility] IRON 113 30 - 160 ug/dL [facility] IRON BINDING CAPACITY 266 228 - 428 ug/dL [facility] TRANSFERRIN SATURAT. 42 15 - 50 % [facility] Blood 03/13/2024 10:5 1 AM EDT 03/13/2024 10:55 AM EDT us Fatoumata Trinidad MD LAB BLOOD ORDERABLES Final Result [address] [address] * C-Reactive Protein (03/13/2024 10:51 AM EDT) [facility] C REACTIVE PROTEIN <3.0 0.0 - 4.0 mg/L [facility] Blood 03/13/2024 10:5 1 AM EDT 03/13/2024 10:55 AM EDT us Fatoumata Trinidad MD LAB BLOOD ORDERABLES Final Result [address] [address] * (ABNORMAL) Comprehensive metabolic panel (03/13/2024 10:51 AM EDT) Pathologist [facility] SODIUM 139 133 - 146 mmol/L [facility] POTASSIUM 4.3 3.3 - 5.1 mmol/L [facility] CHLORIDE 103 96 - 108 mmol/L [facility] CO2 27 21 - 35 mmol/L [facility] BUN 16 6 - 19 mg/dL [facility] CREATININE 0.90 0.5 - 1.5 mg/dL [facility] GLUCOSE 62(L) 70 - 99 mg/dL [facility] ALBUMIN 4.3 3.9 - 4.8 g/dL [facility] TOTAL PROTEIN 6.9 6.5 - 8.0 g/dL [facility] CALCIUM 9.2 8.4 - 10.3 mg/dL [facility] ALKALINE PHOSPHATASE 81 39 - 117 U/L [facility] TOTAL BILIRUBIN 0.3 0.0 - 1.2 mg/dL [facility] AST 24 0 - 37 U/L [facility] ALT 14 0 - 40 U/L [facility] GLOBULIN 2.6 1 - 4.8 g/dL [facility] EGFR 80 >59 mL/min/1.7 3m2 [facility] Comment:Estimated glomerular filtration rate calculated using the CKD-EPI refit equation. ANION GAP 13 10 - 20 mmol/L [facility] Blood 03/13/2024 10:5 1 AM EDT 03/13/2024 10:55 AM EDT us Fatoumata Trinidad MD LAB BLOOD ORDERABLES Final Result Performing Organization Address City/State/[facility] Co de Phone Number [address] [address] * (ABNORMAL) CBC (03/13/2024 10:51 AM EDT) WBC 3.13(L) 4.00 - 11.00 K/uL [facility] RBC 4.44 3.72 - 5.30 M/uL [facility] HGB 14.0 10.6 - 15.5 g/dL [facility] HCT 43.8 32.0 - 45.0 % [facility] PLT 201 140 - 430 K/uL [facility] MCV 98.6(H) 78.0 - 97.0 fL [facility] MCH 31.5 25.0 - 33.0 pg [facility] MCHC 32.0 32.0 - 36.0 g/dL [facility] RDW 12.5 11.0 - 16.0 % [facility] MPV 9.7 8.4 - 12.8 fl [facility] Blood 03/13/2024 10:5 1 AM EDT 03/13/2024 10:55 AM EDT us Fatoumata Trinidad MD LAB BLOOD ORDERABLES Final Result [facility] [address] [place] [address] documented in this encounter Visit Diagnoses Diagnosis Crohn's disease of large intestine with complication- Primary Constipation, unspecified constipation type documented in this encounter Care Teams Channel Rebuilder Relationship Specialty Start Date End Date Samreen Vasquez MD [address] [place] [address] [email or web address] PCP - General Family Medicine 05/23/23 documented as of this encounter Additional Source Comments The information contained in this document represents components of the legal health record. It is not the complete legal health record.[facility]
== END 2025-05-21 06:10 | disposition home or self-care (01) ==
LOC: CF 06:09
PROVIDERS: Visit Provider Anesthesiology
DX: M47.812 Spondylosis without myelopathy or radiculopathy, cervical region (principal)
CPT/HCPCS: 64490; 64491; J2003; J2795; Q9967

== ENCOUNTER 2025-05-21 07:01 | Outpatient (AMB) | payer BC, SELFPAY ==
--- NOTE | 2025-05-21 07:08 | A.OFFVIS_ITS ---
Vital Signs 05/21/25 07:09 Height 5 ft 4 in Weight 158 lb BMI 27.1 BP 93/68 Blood Pressure Location Lt brachial Position Sitting Respiration 18 Pulse 81 Pulse Source Pulse Oximeter Pulse Oximetry (%) 97 Oxygen Delivery Method Room Air Intake Visit Reasons: BILATERAL DIAGNOSTIC C4, C5, C6 MBB Shuttleless Loom Weaver Required: No Allergies amoxicillin (AMOXICILLIN) Allergy (Intermediate, Unverified 01/02/25 11:35) YEAST INFECTION doxycycline (DOXYCYCLINE) Adverse Reaction (Intermediate, Unverified 01/02/25 11:35) VOMITING sulfamethoxazole (From BACTRIM) Adverse Reaction (Intermediate, Unverified 01/02/25 11:35) YEAST INFECTION trimethoprim (From BACTRIM) Adverse Reaction (Intermediate, Unverified 01/02/25 11:35) YEAST INFECTION Physical Exam Vital Signs: Last Vital Signs Pulse 81 05/21/25 07:09 Resp 18 05/21/25 07:09 BP 93/68 05/21/25 07:09 Pulse Ox 97 05/21/25 07:09 Oxygen Delivery Method Room Air 05/21/25 07:09 BMI result Body Mass Index 27.1 Assessment & Plan Assessment & Plan (1) Spondylosis of cervical region without myelopathy or radiculopathy: Code(s): M47.812 - Spondylosis without myelopathy or radiculopathy, cervical region Category: Medical Plan Diagnostic medial branch block C4,C5, C6 bilateral.? ? ?Informed consent was explained to the patient. All questions were explained and? answered.? The patient was taken inside the operating room where he was positioned prone on the operating table. Time-out was performed delineating correct site, side, the nature of the procedure, patient's allergy, . All operating room staff was participating in OR time-out procedure. ? ? The the upper back and posterior neck was prepped with ChloraPrep and draped with sterile towels.? C-arm was brought over the operating field and sq picture of C4, C5, C6 vertebra were delineated on the screen.? Point of interest were delineated as lateral masses of the vertebras as above with the waist of each l ateral mass as the target of the final needle position.? The projection of the point of interest to the skin were injected with the small amount of local anesthetic lidocaine 2% mixed with ropivacaine 0.5% 1-1 approximately 1 cc.? After that 22 gauge 3.5 inch spinal needles were driven sequentially to the points of interest in tunnel vision fashion. Lateral view update on left and right side demonstrating appropriate needles positioned. At the point of interests the needle was injected with small amount of the contrast.? The injection of the contrast did not demonstrate any intravascular or intrathecal spread of the contrast.? After that injection of the?ropivacaine 0.5%-1ccof was performed at each needle location.?? after that the needles were removed and Bandaids were applied. Patient tolerated the procedure well she was taken outside of the operating room to recovery room. Orders: Orders FL guidance in treatment room Today M47.812 - Spondylosis without myelopathy or radiculopathy, cervical region Coding Level of Care Code Procedure Only Diagnoses Spondylosis of cervical region without myelopathy or radiculopathy M47.812
[2025-05-21 07:09] VITALS: BP 93/68; PULSE 81; RESP 18; O2SAT 97; BMI 27.1
== END 2025-05-21 08:20 | disposition home or self-care (01) ==
LOC: HO.PMCPRC 07:01
PROVIDERS: PCP Family Medicine; Visit Provider Anesthesiology
DX: M47.812 Spondylosis without myelopathy or radiculopathy, cervical region (principal)
CPT/HCPCS: 64490; 64491

== ENCOUNTER 2025-05-23 09:07 | Outpatient (AMB) | payer BC, SELFPAY ==
[2025-05-23 09:17] VITALS: BP 108/66; PULSE 82; RESP 18; O2SAT 98; BMI 26.8
--- NOTE | 2025-05-23 09:17 | MHC.OFFVIS ---
Vital Signs 05/23/25 09:17 Height 5 ft 4 in Weight 156 lb BMI 26.8 BP 108/66 Blood Pressure Location Rt brachial Position Sitting Respiration 18 Pulse 82 Pulse Source Pulse Oximeter Pulse Oximetry (%) 98 Oxygen Delivery Method Room Air Intake Visit Reasons: S/P BILATERAL DIAGNOSTIC C4, C5, C6 MBB Pre Sales Network Engineer Required: No Allergies amoxicillin (AMOXICILLIN) Allergy (Intermediate, Verified 05/23/25 09:18) YEAST INFECTION doxycycline (DOXYCYCLINE) Adverse Reaction (Intermediate, Verified 05/23/25 09:18) VOMITING sulfamethoxazole (From BACTRIM) Adverse Reaction (Intermediate, Verified 05/23/25 09:18) YEAST INFECTION trimethoprim (From BACTRIM) Adverse Reaction (Intermediate, Verified 05/23/25 09:18) YEAST INFECTION HPI Comments Details: Antionette is back in my office after diagnostic medial branch block C4-C5 C6. She reports that immediately after the procedure she experienced no pain. For the 1st 3 hours after the procedure her pain was 1/10 while before the procedure her pain was 6/10. For the next 3 hours she experienced very little pain 3/10. At the end of the 6 hour her pain became 4/10. She reported pain improvement at lower levels up until this morning 2 days after the procedure when her pain became 6/10 returned to the baseline. I offered this patient radiofrequency ablation versus sprint PNS. Patient agreed to go for Sprint PNS. I will schedule her for bilateral C4 procedure possible C5 possible C6. Prior: complains on pain in the neck with radiation into the bilateral shoulders and upper back. Her pain started long time ago. Because of her pain she can not sleep normally. She tried physical therapy chiropractic manipulations massage therapy and acupuncture to treat her pain. She received only temporary pain relief from some of this procedures. She tried TENs unit and it helps her temporarily as well. She had images of her neck and her cervical spine in [facility]. Those are not available for me. Trigger point injections with [facility] which were not helpful for her pain. Review of Systems Const All systems reviewed & are unremarkable except as noted in HPI and below ENT Reports Normal hearing present Neuro Reports Normal hearing present, Denies Abnormal speech present, Denies confusion and Denies Sensory deficit (Neuro) Psych Denies confusion Physical Exam Const General: no acute distress; No confusion Orientation/consciousness: patient oriented x3 and No confusion Eyes General: appearance normal, both eyes and all related structures Pupils: Equal, round and reactive pupils present EOM: EOMs intact bilaterally Neck Other: Flexing head forward aggravates her pain minimally and flexing backwards aggravate her pain the most. Lhermitte test is negative however axial compression aggravates pain in the neck. Spurling test is negative bilaterally. There is tenderness on palpation in paraspinal spinal region cervical spine. Most severe tenderness is observed that approximately C5-C6 intervals. Valsalva maneuver does not aggravate her pain. Chest Chest palpation & inspection: normal inspection of the chest Resp Effort & Inspection: normal respiratory effort, able to speak in complete sentences, normal respiratory pattern, no audible wheezes and no cough Cardio Jugular venous distension: no JVD GI Inspection: Yes normal to inspection Neuro General: patient oriented x3, gait normal and No confusion Cranial nerves: Yes CN's II-XII intact bilaterally, Yes Equal, round and reactive pupils present, Yes Normal hearing present and Yes Ability to bilaterally elevate shoulders present Speech: No Abnormal speech present Gait exam (Neuro): Normal gait present Motor exam (neuro): 5/5 motor strength present throughout Sensory Exam: No Sensory deficit (Neuro) Extrem General: No pedal edema Psych Speech and movement: Normal speech and movement present Affect: normal affect Attitude: cooperative Thought process: Normal thought process present Thought content: Normal thought content present Insight: Good insight present (Psych) Judgement: Good judgement present (Psych) Assessment & Plan Assessment & Plan (1) Spondylosis of cervical region without myelopathy or radiculopathy: Code(s): M47.812 - Spondylosis without myelopathy or radiculopathy, cervical region Category: Medical Plan The diagnostic C4-C5 C6 medial branch block bilateral resulted in very good pain relief for this patient. First 6 hours the pain reduced more than 80%. She felt pain improvement for the next 2 days after the procedure. This patient exhausted conservative measures to help her pain as it is dictated as above. I will schedule her for bilateral C4 possible C5 possible C6 sprint PNS trial. RFA briefly explained to the patient as well, she chose to go for Sprint PNS. Patient Instructions: I here by testify that I spent 30 minutes in conversation with this patient as well as planning her care and organizing this note. Coding Level of Care Code Est Pt Level 4 ([address]) Diagnoses Spondylosis of cervical region without myelopathy or radiculopathy M47.812
--- OUTSIDE RECORDS SUMMARY | 2025-05-23 10:27 | XMS_ITS | Clinical Summary ---
Author Organization [facility] [address] [place] [address] [place] [phone] Phone Care Team Providers Care Location Manager Name Role Phone Samreen Vasquez MD Primary Care Provider [phone] Allergies Active Allergy Reactions Criticality Noted Date [...] prn clobetasol and nystatin. 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 Resolved Problems Problem Noted Date Diagnosed Date Resolved Date Lichen sclerosus et atrophicus 01/22/2025 01/22/2025 Surgical History Surgery Date Site/Laterality Comments OTHER SURGICAL HISTORY 04/30/2013 PROCEDURE: ID [id number] FLP TUBE ABDL/VAG APPR UNI/BI SINUS SURGERY 11/14/2014 PROCEDURE: ID UNLISTED PROCEDURE ACCESSORY SINUSES OTHER SURGICAL HISTORY PROCEDURE: BREAST TISSUE EXCISIONAL PATHOLOGY EXAM; COMMENT: skin lesion Medical History Medical History Date Comments Dyspareunia in female DX:Dyspare unia in female; COMMENT: Saw sex therapy for - 8 years in [place] in past Psoriasis DX:Psoriasis; CO MMENT: On Cosentyx Psoriatic arthritis ([facility] V24, [facility] V28) DX:Psoriatic arthritis ([facility]) Allergic rhinitis 03/13/2019 DX:Allergic rh initis Family [...] ulcerati on History of substance abuse ( [facility] V24, [facility] V28) 03/13/2019 DX:History of substance abus e ([facility]); COMMENT: alcohol Vulvar ulcer 10/10/2018 DX:Vulvar ulcer [...] for your loved ones. For example, child guidance counselor or elderly care for an older adult? [...] M Vag-S pont [place] Delivery Location:[facility] Last Filed Vital Signs Vital Sign [...] Hepatitis C antibody (01/22/2025 3:29 PM EDT) [facility] Hepatitis C Antibody Negative Negative LAB CHEMISTRY METHOD 01/22/2025 7:42 PM EDT [facility] Blood Venous blood specimen / Unknown Venipuncture / Unknown 01/22/2025 3:29 PM EDT 01/22/2025 3:29 PM EDT Simi Pérez MD LAB BLOOD ORDERABLES Final Result [facility] [address] [place] [address], [place] [phone] * HIV 1 molecular study quantitative (01/22/2025 3:29 PM EDT) [facility] HIV-1 RNA Interpretation Not Detected Not Detected LAB MOLECULAR DIAGNOSTICS METHOD 01/23/2025 8:29 AM EDT [facility] Comment:HIV RNA not detected , unable to report quantitative results. Blood Venous blood specimen / Unknown Venipuncture / Unknown 01/22/2025 3:29 PM EDT 01/22/2025 3:29 PM EDT us Simi Pérez MD LAB BLOOD ORDERABLES Final Result [facility] [address] [place] [address], [place] [phone] from Last 3 Months or Most Recently Relevant to Health Maintenance Insurance [facility] Care Teams Location Manager Relationship Specialty Start Date End Date Samreen Vasquez MD [address] [place] [id number] PCP - General 01/24/24
--- OUTSIDE RECORDS SUMMARY | 2025-05-23 10:27 | XMS_ITS | Clinical Summary ---
Author Organization [facility] Address [address] [address] Phone Care Team Providers Care Customer Service Analyst Name Role Phone Samreen Vasquez MD Primary [...] topic Medical Devices Not on file Insurance [facility] James [place] [facility] [place] [facility] [place] [facility] [place] [facility] James [place] [facility] [employer] [place] Care Teams Customer Service Analyst Relationship Specialty Start Date End Date Samreen Vasquez MD [address] [place] [id number] [email or web address] PCP - General Family Medicine 05/23/23 Additional Source Comments The information contained in this document represents components of the legal health record. It is not the complete legal health record.[facility]
--- OUTSIDE RECORDS SUMMARY | 2025-05-23 10:27 | XMS_ITS | Encounter Summary ---
Author Organization [facility] Address [address] [facility] ([place], [place]) [address] [place] [address] Phone Care Team Providers Care [facility] Name Role Phone Samreen Vasquez MD Primary Care Provider [phone] Encounter Details Date Type Department Care Team (Latest Contact Info) Description 09/17/2024 Transcribe Orders [facility] Laboratory [address] [address] Fariba Vo NP [address] [place] [address] [email or web address] (Primary Dx) Social History Tobacco Use Types [...] REACTIVE PROTEIN <3.0 0.0 - 4.0 mg/L [facility] Blood 09/17/2024 3:07 PM EST 09/17/2024 3:11 PM EST us Fariba Vo NP LAB BLOOD ORDERABLES Final Result Performing Organization Address City/State/[facility] Co de Phone Number [facility] [address] [place] [address] * (ABNORMAL) Comprehensive metabolic panel (09/17/2024 3:07 PM EST) Pathologist [facility] SODIUM 136 133 - 146 mmol/L [facility] POTASSIUM 4.2 3.3 - 5.1 mmol/L [facility] CHLORIDE 97 96 - 108 mmol/L [facility] CO2 29 21 - 35 mmol/L [facility] BUN 19 6 - 19 mg/dL [facility] CREATININE 1.20 0.5 - 1.5 mg/dL [facility] GLUCOSE 86 70 - 99 mg/dL [facility] ALBUMIN 4.5 3.9 - 4.8 g/dL [facility] TOTAL PROTEIN 7.0 6.5 - 8.0 g/dL [facility] CALCIUM 9.1 8.4 - 10.3 mg/dL [facility] ALKALINE PHOSPHATASE 76 39 - 117 U/L [facility] TOTAL BILIRUBIN 0.3 0.0 - 1.2 mg/dL [facility] AST 22 0 - 37 U/L [facility] ALT 18 0 - 40 U/L [facility] GLOBULIN 2.5 1 - 4.8 g/dL [facility] EGFR 56(L) >59 mL/min/1.7 3m2 [facility] Comment:Estimated glomerular filtration rate calculated using the CKD-EPI refit equation. ANION GAP 14 10 - 20 mmol/L [facility] Blood 09/17/2024 3:07 PM EST 09/17/2024 3:11 PM EST us Fariba Fenton Tavo STAVE SAW OPERATOR LAB BLOOD ORDERABLES Final Result [facility] [address] [place] [address] * (ABNORMAL) CBC and differential (09/17/2024 3:07 PM EST) WBC 6.45 4.00 - 11.00 K/uL [facility] RBC 4.43 4.00 - 5.20 M/uL [facility] HGB 14.0 12.0 - 16.0 g/dL [facility] HCT 42.7 36.0 - 46.0 % [facility] PLT 213 150 - 450 K/uL [facility] MCV 96.4 80.0 - 100.0 fL [facility] MCH 31.6(H) 27.0 - 31.0 pg [facility] MCHC 32.8 32.0 - 36.0 g/dL [facility] RDW 12.8 11.5 - 14.5 % [facility] MPV 9.4 8.4 - 12.0 fL [facility] NRBC 0.00 0.00 /100 WBCs [facility] ABSOLUTE NRBC 0.00 0.00 K/uL [facility] DIFF METHOD Auto [facility] NEUTS 64.3 48.0 - 76.0 % [facility] LYMPHS 24.0 18.0 - 41.0 % [facility] MONOS 9.3 4.0 - 11.0 % [facility] EOS 1.6 0.0 - 5.0 % [facility] BASOS 0.6 0.0 - 1.5 % [facility] Granulocytes, immature (%) 0.2 0.0 - 0.9 % [facility] ABSOLUTE NEUTS 4.15 1.92 - 7.60 K/uL [facility] ABSOLUTE LYMPHS 1.55 0.72 - 4.10 K/uL [facility] ABSOLUTE MONOS 0.60 0.16 - 1.10 K/uL [facility] ABSOLUTE EOS 0.10 0.00 - 0.50 K/uL [facility] ABSOLUTE BASOS 0.04 0.00 - 0.15 K/uL [facility] Granulocytes, immature 0.01 0.00 - 0.09 K/uL [facility] Blood 09/17/2024 3:07 PM EST 09/17/2024 3:11 PM EST us Fariba Vo STAVE SAW OPERATOR LAB BLOOD ORDERABLES Final Result [facility] [address] [place] [address] documented in this encounter Visit Diagnoses Diagnosis Bloating- Primary Flatulence, eructation, and gas pain documented in this encounter Care Teams [facility] Relationship Specialty Start Date End Date Samreen Vasquez MD [address] [place] [address] [email or web address] PCP - General Family Medicine 05/23/23 documented as of this encounter Additional Source Comments The information contained in this document represents components of the legal health record. It is not the complete legal health record.[facility]
--- OUTSIDE RECORDS SUMMARY | 2025-05-23 10:27 | XMS_ITS | Encounter Summary ---
Author Organization [facility] Address [address] [facility] [address] [place] [address] Phone Care Team Providers Care Forming Yardage Control Operator Name Role Phone Samreen Vasquez MD Primary Care Provider [phone] Encounter Details Date Type Department Care Team (Latest Contact Info) Description 03/13/2024 Transcribe Orders [facility] Laboratory 10 [facility] [address] [place] [address] Fatoumata Trinidad MD [address] [place] [address] [place] [phone] [email or web address] Crohn's disease of large intestine with complication [...] D (TOTAL) 57 30 - 60 ng/mL [facility] Blood 03/13/2024 10:5 1 AM EDT 03/13/2024 10:55 AM EDT us Fatoumata Trinidad MD LAB BLOOD ORDERABLES Final Result Performing Organization Address [facility]/ZIP Co de Phone Number [address] [address] * Ferritin (03/13/2024 10:51 AM EDT) FERRITIN 90 13 - 150 ug/L [facility] Blood 03/13/2024 10:5 1 AM EDT 03/13/2024 10:55 AM EDT us Fatoumata Trinidad MD LAB BLOOD ORDERABLES Final Result Performing Organization Address [facility]/ZIP Co de Phone Number [address] [address] * Folate (03/13/2024 10:51 AM EDT) FOLIC ACID 12.9 4.2 - 19.9 ng/mL [facility] Blood 03/13/2024 10:5 1 AM EDT 03/13/2024 10:55 AM EDT us Fatoumata Trinidad MD LAB BLOOD ORDERABLES Final Result Performing Organization Address [facility]/ZIP Co de Phone Number [address] [address] * Iron and iron binding capacity (03/13/2024 10:51 AM EDT) Pathologist [facility] IRON 113 30 - 160 ug/dL [facility] IRON BINDING CAPACITY 266 228 - 428 ug/dL [facility] TRANSFERRIN SATURAT. 42 15 - 50 % [facility] Blood 03/13/2024 10:5 1 AM EDT 03/13/2024 10:55 AM EDT us Fatoumata Trinidad MD LAB BLOOD ORDERABLES Final Result [address] [address] * C-Reactive Protein (03/13/2024 10:51 AM EDT) [facility] C REACTIVE PROTEIN <3.0 0.0 - 4.0 mg/L [facility] Blood 03/13/2024 10:5 1 AM EDT 03/13/2024 10:55 AM EDT us Fatoumata Trinidad MD LAB BLOOD ORDERABLES Final Result [address] [address] * (ABNORMAL) Comprehensive metabolic panel (03/13/2024 10:51 AM EDT) Pathologist [facility] SODIUM 139 133 - 146 mmol/L [facility] POTASSIUM 4.3 3.3 - 5.1 mmol/L [facility] CHLORIDE 103 96 - 108 mmol/L [facility] CO2 27 21 - 35 mmol/L [facility] BUN 16 6 - 19 mg/dL [facility] CREATININE 0.90 0.5 - 1.5 mg/dL [facility] GLUCOSE 62(L) 70 - 99 mg/dL [facility] ALBUMIN 4.3 3.9 - 4.8 g/dL [facility] TOTAL PROTEIN 6.9 6.5 - 8.0 g/dL [facility] CALCIUM 9.2 8.4 - 10.3 mg/dL [facility] ALKALINE PHOSPHATASE 81 39 - 117 U/L [facility] TOTAL BILIRUBIN 0.3 0.0 - 1.2 mg/dL [facility] AST 24 0 - 37 U/L [facility] ALT 14 0 - 40 U/L [facility] GLOBULIN 2.6 1 - 4.8 g/dL [facility] EGFR 80 >59 mL/min/1.7 3m2 [facility] Comment:Estimated glomerular filtration rate calculated using the CKD-EPI refit equation. ANION GAP 13 10 - 20 mmol/L [facility] Blood 03/13/2024 10:5 1 AM EDT 03/13/2024 10:55 AM EDT us Fatoumata Trinidad MD LAB BLOOD ORDERABLES Final Result Performing Organization Address City/State/[facility] Co de Phone Number [address] [address] * (ABNORMAL) CBC (03/13/2024 10:51 AM EDT) WBC 3.13(L) 4.00 - 11.00 K/uL [facility] RBC 4.44 3.72 - 5.30 M/uL [facility] HGB 14.0 10.6 - 15.5 g/dL [facility] HCT 43.8 32.0 - 45.0 % [facility] PLT 201 140 - 430 K/uL [facility] MCV 98.6(H) 78.0 - 97.0 fL [facility] MCH 31.5 25.0 - 33.0 pg [facility] MCHC 32.0 32.0 - 36.0 g/dL [facility] RDW 12.5 11.0 - 16.0 % [facility] MPV 9.7 8.4 - 12.8 fl [facility] Blood 03/13/2024 10:5 1 AM EDT 03/13/2024 10:55 AM EDT us Fatoumata Trinidad MD LAB BLOOD ORDERABLES Final Result [facility] [address] [place] [address] documented in this encounter Visit Diagnoses Diagnosis Crohn's disease of large intestine with complication- Primary Constipation, unspecified constipation type documented in this encounter Care Teams Forming Yardage Control Operator Relationship Specialty Start Date End Date Samreen Vasquez MD [address] [place] [address] [email or web address] PCP - General Family Medicine 05/23/23 documented as of this encounter Additional Source Comments The information contained in this document represents components of the legal health record. It is not the complete legal health record.[facility]
--- OUTSIDE RECORDS SUMMARY | 2025-05-23 10:27 | XMS_ITS | Encounter Summary ---
Author Organization [facility] Address [address] [facility] [address] [place] [address] Phone Care Team Providers Care Tub Mender Name Role Phone Yen Barber NP Unavailable Simi Pérez MD Unavailable [phone] Kathy Castle MD Unavailable Kathy Castle MD Primary Care Provider Samreen Vasquez MD Primary Care Provider [phone] Reason for Referral * Physical Therapy (Routine) - Closed Specialty Diagnoses / Procedures Referred By Vikas larose Referred To Contact Physical Therapy Diagnoses dyssneria System, Provider Not In, [facility] [address] [address] Phone: tel: Referral ID Status Reason Start Date Expiration Date Visits Re quested Visits Authorized [id number] Closed 10/16/2018 10/16/2019 16 16 Encounter Details Date Type Department Care Team (Latest Contact Info) Description 08/28/2018 Transcribe Orders [facility] [address] [place] [address] Joe Mays MD [address] [place] [address] [facility] [place] [id number] Encounter for rehabilitation (Primary Dx) Social History [...] Diagnoses Orde r Schedule Ambulatory referral to [facility] Physical Therapy Outpatient Referral Routine Encounter for rehabilitation Ordered: 08/28/2018 documented as of this encounter Visit Diagnoses Diagnosis Encounter for rehabilitation- Primary documented in this encounter Care Teams Tub Mender Relationship Specialty Start Date End Date Kathy Castle MD [address] [place] [address] [address] [email or web address] PCP - General Family Medicine 08/19/17 05/22/23 Samreen Vasquez MD [address] [place] [address] [email or web address] PCP - General Family Medicine 05/23/23 Yen Barber NP [address] [place] [address] Historical LMR Provider 06/30/17 2 Simi Pérez MD [address] [place] [address] Historical LMR Provider 06/30/17 2 Kathy Castle MD [address] [facility], [address] [place] [address] [email or web address] Historical LMR Provider 06/30/17 2 documented as of this encounter Additional Source Comments The information contained in this document represents components of the legal health record. It is not the complete legal health record.[facility]
--- OUTSIDE RECORDS SUMMARY | 2025-05-23 10:28 | XMS_ITS | Encounter Summary ---
Author Organization [facility] Address [address] [place] [address] Care Team Providers Care Patient Monitor Name Role Phone Aletha Roberts MD Primary Care Provider [phone] Justin Anderson MD Unavailable [phone] Samreen Vasquez MD Primary Care Provider + Encounter Details Date Type Department Care Team (Late st Contact Info) Description 11/06/2021 Scanned Document [facility] [address] [place] [phone] Justin Anderson MD [address] [place] [address] Social History Tobacco Use Types Packs/Day Years [...] on filedocumented in this encounter Care Teams Patient Monitor Relationship Specialty Start Date End Date Aletha Roberts MD [address] [place] [address] PCP - General General Medicine 08/03/21 04/04/22 Samreen Vasquez MD [place] [id number] [address] PCP - General Family Medicine 04/05/22 Justin Anderson MD [address] [place] [address] Gastroenterology 08/03/21 documented as of this encounter
--- OUTSIDE RECORDS SUMMARY | 2025-05-23 10:28 | XMS_ITS | Clinical Summary ---
Author Organization [facility] Address [address] [place] [address] Care Team Providers Care Nursing Technician Name Role Phone Justin Anderson MD Unavailable [phone] Samreen Vasquez MD Primary Care Provider [...] daily. 03/15/20 23 Active senna-docusate (SENNA-S) 8.6-50 MGIndications:Media Operator gibson idiopathic constipation Take 2 tablets by [...] OUT OF STATE - HMO Care Teams Nursing Technician Relationship Specialty Start Date End Date Samreen Vasquez MD [place] [id number] [address] [address] PCP - General Family Medicine 04/05/22 Justin Anderson MD [address] [place] [address] Gastroenterology 08/03/21
== END 2025-05-23 09:58 | disposition home or self-care (01) ==
LOC: HO.PMC 09:08
PROVIDERS: PCP Family Medicine; Visit Provider Anesthesiology
DX: M47.812 Spondylosis without myelopathy or radiculopathy, cervical region (principal)
CPT/HCPCS: 99214